=== PATIENT | female | born 2000 | race Hispanic/Latino ===

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

== ENCOUNTER → 2020-02-16 12:58 | Outpatient (CLI) | payer OTHER, MEDICAID, SELFPAY ==
[2020-02-17 09:12] LABS: Strep Grp B PCR NEG for Grp B Strep
== END ==
PROVIDERS: PCP Specialist; Visit Provider Specialist
DX: Z34.03 Encounter for supervision of normal first pregnancy, third trimester (principal); Z3A.37 37 weeks gestation of pregnancy
CPT/HCPCS: 87653

== ENCOUNTER 2020-03-05 11:32 | Observation (INO) | payer OTHER, MEDICAID, SELFPAY ==
--- NOTE | 2020-03-05 12:37 | P.TNLD_ITS ---
Visit Information Visit Information Date of evaluation: 03/05/20 Primary OB Provider: Barbara Phipps On-call OB Provider: Alicia Lerner Reason for Evaluation: Yes rule out labor Comments/Additional reasons for admission: Patient comes in with regular contractions since this morning. No leaking or bleeding. Reports good movement. She was brought over from [place]. Vital Signs Vital Signs: Temperature 36.3? blood pressure 114/72 heart rate 94 PFSH Surgical History Anesthesia (Resolved) [place] teeth extracted (Acute ~2018) Family History Mother No problems noted. Father Depression Grandfather No problems noted. Grandmother No problems noted. Grandfather Stomach cancer Grandmother No problems noted. 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 Cervix was unreachable per RN. NST reactive. Patient was fadia though somewhat irregularly. She walked for an hour and returned to the center. Cervix reportedly unchanged. She was sent home with return precautions. Follow-up in clinic as scheduled. OB Disposition: home
== END 2020-03-05 14:30 | disposition home or self-care (01) ==
PROVIDERS: Admitting Provider Family Medicine; PCP Specialist; Referring Provider Family Medicine; Visit Provider Family Medicine
DX: Z34.03 Encounter for supervision of normal first pregnancy, third trimester (principal); Z3A.39 39 weeks gestation of pregnancy
CPT/HCPCS: 59025; G0378; G0379

== ENCOUNTER 2020-03-06 09:17 | Inpatient (IN) | payer OTHER, MEDICAID, SELFPAY ==
--- NOTE | 2020-03-06 12:56 | PM.OBHP.1 ---
OB HPI Date/Time Date of admission: 03/06/20 Date Patient Seen: 03/06/20 Time Patient Seen: 11:30 History of Present Condition Chief complaint: NST : 1 Para: 0 Estimated Date of Delivery: 03/08/20 Estimated Gestational Age (weeks): 39 Narrative: Lizz Astudillo is a 20 year old female admitted in active labor History of Present care: good care, initiated at week # (8), number of visits (11) and pounds weight gain (36) Dating criteria: LMP confirmed by 1st trimester US Ultrasounds: normal 1st trimester US and normal mid trimester US Obstetrical complications: none Medical complications: none Preadmission Labs Blood type: O (+) positive -: Antibody screen: negative, GBS status: negative, HBsAG: negative, HIV: negative and RPR/VDLR: negative -: Chlamydia screen: not detected and Gonorrhea screen: not detected -: Rubella: not immune and Varicella: immune HCAB: reactive 1 hr GTT: 107 Evaluation Evaluation Baseline heart rate: 130 Variability: Moderate (11-25) monitor accelerations: Present monitor decelerations: Absent Contraction Frequency (minutes): 3 Uterine Contraction Intensity: Mild Category of Tracing: Reactive Cervical dilation (cm): 4 Cervical effacement (%): 80 station: -1 Non-invasive Membranes Rupture Test: negative PFSH Surgical History Anesthesia (Resolved) [place] teeth extracted (Acute ~2018) Family History Mother No problems noted. Father Depression Grandfather No problems noted. Grandmother No problems noted. Grandfather Stomach cancer Grandmother No problems noted. 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 No rupture membranes. Good movement ROS: Yes All systems reviewed with the patient and are negative except as otherwise documented Exam Vital Signs (past 8 hours): Blood pressure 134/75, pulse of 102, temperature 97.1? Narrative Exam Narrative: HEENT exam within normal limits. Lungs are clear to auscultation percussion. Heart is regular rate and rhythm no S3-S4 or murmurs. Abdomen is gravid and nontender. Fetus is vertex. Extremities without edema and nontender. Assessment and Plan Assessment and Plan Assessment and Plan narrative: Term in active labor. Anticipate vaginal delivery.
[2020-03-06 13:31] VITALS: BP 126/85
[2020-03-06 14:08] LABS: Add Manual Diff / Slide Review NO; Basophils Absolute Auto 0 /uL (0-100); Basophils Percent Auto 0.3 % (0-2); Eosinophils Absolute Auto 0 /uL (0-450); Eosinophils Percent Auto 0.1 % (2-4); Hematocrit 38.8 % (36-46); Hemoglobin 12.9 g/dL (12.0-16.0); Lymphocytes Absolute Auto 1600 /uL (1100-4500); Lymphocytes Percent Auto 14.4 % (25-40); Mean Corpuscular HGB Conc 33.2 % (30-36); Mean Corpuscular Hemoglobin 28.2 PG (26-34); Monocytes Absolute Auto 400 /uL (0-900); Monocytes Percent Auto 3.5 % (3-14); Neutrophils Absolute Auto 9300 /uL (1500-7000); Neutrophils Percent Auto 81.7 % (50-75); Platelet Count 287 X10^3/uL (150-400); Red Blood Cell Count 4.57 X10^6/uL (4.0-5.2); Red Cell Distribution Width 14.4 % (11.6-14.8); White Blood Cell Count 11.4 X10^3/uL (4.5-11.0)
[2020-03-06 14:41] LABS: COVID19 -Nasal RAPID Negative (Negative)
[2020-03-06] MEDS: ONDANSETRON 4 MG/2 ML INJ IV (21:02)
[2020-03-06] MEDS: fentaNYL 100 MCG/2 ML INJ IV (22:11)
--- NOTE | 2020-03-07 01:08 | PM.OBPRVD ---
Labor & Delivery Delivery date: 03/07/20 Cervical ripening method: none Induction method: none Delivery augmentation: rupture of membranes Delivery monitor: external FHT and external uterine Route of delivery: L&D Laceration Description: Periurethral - 1st Degree and Vaginal - 1st Degree Delivery repair: chromic ( 3 0 and 4 0 chromic) Estimated blood loss (mL): 200 Anesthesia type: Local ( 10 cc of 1% lidocaine) Narrative: Patient arrived on Labor and delivery in active labor. She initially had slow progress in labor. She was AROMed for clear fluid. Patient progressed to complete dilation. 2Nd stage of labor was 13 minutes. The heart tones category 1 to category 2 throughout labor with decelerations with pushing treated with O2 and IV fluids. the viable male infant was delivered spontaneously over an intact perineum. The infant had a nuchal cord that was released. He was placed on the maternal abdomen. After the cord stopped pulsating the cord was clamped, cut, and cord bloods obtained. The placenta delivered spontaneously, intact, with 3 vessels. Patient had no cervical tears. She had a first-degree vaginal tear that was repaired with 3 0 chromic suture. She had a right labial tear that was repaired with 4 0 chromic suture. Both and mother doing well. Baby 1: gender: Male Presentation: vertex position: Right Occiput Anterior Placenta delivery description: Spontaneous cord vessel description: Nuchal Cord score (1 min): 8 score (5 min): 9 Plan for aftercare: routine post vaginal delivery care
[2020-03-07] MEDS: IBUPROFEN 600 MG TABLET PO ×4 (03:10→22:51)
[2020-03-07] MEDS: ACETAMINOPHEN 325 MG TABLET 650 MG PO (05:36)
--- NOTE | 2020-03-07 15:44 | PM.OBPN.1 ---
Subjective - OB Subjective Patient comments: no complaints [place] baby status: doing well and nursing well [place] feeding status: exclusively breast feeding Date Patient Seen: 03/07/20 Time Patient Seen: 15:46 Interval history: Patient is doing well . She is urinating and ambulating well. She is breast-feeding without difficulty. She has minimal pain. No headaches, scotomata, epigastric pain. Exam Vital Signs (past 8 hours): Blood pressure 105/65, pulse of 96, temperature 98.5? Narrative Exam Narrative: Abdomen is soft, nontender. Uterus is firm, at U, nontender. Mild lochia. Extremities without edema and nontender. Objective Labs Result Diagrams: 03/06/20 12:40 Assessment & Plan Assessment and Plan (1) Vaginal delivery: Status: Acute Plan day: 1 plan OB: routine care Time Spent With Patient Time: Total time spent is greater than 50% in coordination of care (as documented) at patient's floor/unit and/or counseling patient: Time with patient: less than 15 minutes
[2020-03-08 06:43] LABS: Add Manual Diff / Slide Review NO; Basophils Absolute Auto 100 /uL (0-100); Basophils Percent Auto 0.9 % (0-2); Eosinophils Absolute Auto 0 /uL (0-450); Eosinophils Percent Auto 0.4 % (2-4); Hematocrit 30.8 % (36-46); Hemoglobin 10.4 g/dL (12.0-16.0); Lymphocytes Absolute Auto 1800 /uL (1100-4500); Lymphocytes Percent Auto 18.5 % (25-40); Mean Corpuscular HGB Conc 33.8 % (30-36); Mean Corpuscular Hemoglobin 28.8 PG (26-34); Mean Corpuscular Volume 85.1 fL (80-100); Monocytes Absolute Auto 700 /uL (0-900); Monocytes Percent Auto 6.8 % (3-14); Neutrophils Absolute Auto 7200 /uL (1500-7000); Neutrophils Percent Auto 73.4 % (50-75); Platelet Count 235 X10^3/uL (150-400); Red Blood Cell Count 3.62 X10^6/uL (4.0-5.2); Red Cell Distribution Width 14.5 % (11.6-14.8); White Blood Cell Count 9.8 X10^3/uL (4.5-11.0)
[2020-03-08] MEDS: LANOLIN OINT 7 GM 1 APPLIC TOP (07:56)
[2020-03-08] MEDS: IBUPROFEN 600 MG TABLET PO ×2 (07:56→14:33)
--- NOTE | 2020-03-08 08:49 | P.DS_ITS ---
Discharge Providers Provider Date of admission: 03/06/20 09:17 Discharge Date: 03/08/20 Primary care physician: Barbara Phipps MD Consults: 03/08/20 01:06 Consult to Cook Mess Routine Comment: Discharge provider: Barbara Phipps MD Summary Hospital Course Date Patient Seen: 03/08/20 Time Patient Seen: 08:49 Procedures: Spontaneous vaginal delivery repair of first-degree vaginal tear Hospital Course: Patient arrived on Labor and delivery in active labor. She eventually progressed and had a spontaneous vaginal delivery. Peripartum Data Infant Delivery Method: Natural Vaginal Laceration Description: Vaginal - 1st Degree and Labial (Small right labia minora tear) Procedures: Spontaneous vaginal delivery repair of first-degree tear. Patient is urinating and ambulating well. No headaches, scotomata, epigastric pain. Pain is mild. Breast-feeding is going well. complications: none [place] 1: Gender: Male Disposition of : home Discharge Diagnosis (1) Vaginal delivery: Status: Acute Status at Discharge Cognitive/behavioral status at discharge: oriented Functional status at discharge: independent ambulation Overall status at discharge: patient is progressing back to baseline Time Spent with Patient Time attestation: Total time spent providing and/or coordinating discharge services: Time spent: Less than 30 minutes Objective Labs Result Diagrams: 03/08/20 06:27 Labs: Laboratory Results - last 24 hr 03/08/20 06:27 WBC 9.8 RBC 3.62 L Hgb 10.4 L Hct 30.8 L MCV 85.1 MCH 28.8 MCHC 33.8 RDW 14.5 Plt Count 235 Neut % (Auto) 73.4 Lymph % (Auto) 18.5 L [place] % (Auto) 6.8 Eos % (Auto) 0.4 L Baso % (Auto) 0.9 Neut # (Auto) 7200 H Lymph # (Auto) 1800 [place] # (Auto) 700 Eos # (Auto) 0 Baso # (Auto) 100 Exam Vital Signs (past 8 hours): Blood pressure 113/75, pulse of 87, temperature 97.1? Narrative Exam Narrative: Abdomen is soft, nontender. Uterus is firm, at U, nontender. Mild lochia. Extremities without edema and nontender. Patient is blood type is O positive, she is rubella nonimmune so will receive the rubella vaccine prior to discharge, she received Tdap in the 3rd trimester. Discharge Plan Discharge Plan Patient Disposition: Home Discharge orders & Medications Prescriptions: Continued (DME) Double Electric breast Pump and Supplies See Rx Instructions .ROUTE .MEDSUPPLY Qty: 1 RF: 0 KPN Tablet 1 tab PO DAILY RF: 0 Follow up/Referrals: Barbara Phipps MD [Primary Care Provider] - 03/27/20 (in [place]) Diet/Activity/Treatments Diet: Regular Activity: Nothing in vagina for 6 weeks Skin/Wound/Dressing Care Report to your healthcare provider any signs of infection, such as:: chills, fever and increased pain Discharge Data Primary Care Provider: Barbara Phipps
[2020-03-08] MEDS: MEASLES,MUMPS,RUBELLA VACC/PF 0.5 ML VIAL SUBCUT (16:00)
[2020-03-08 17:17] VITALS: BP 126/85; PULSE 89; RESP 16; TEMP 36.6
== END 2020-03-08 16:05 | disposition home or self-care (01) | DRG 560 ==
PROVIDERS: Admitting Provider Specialist; PCP Specialist; Referring Provider Specialist; Visit Provider Specialist
DX: O70.0 First degree perineal laceration during delivery (principal); Z3A.39 39 weeks gestation of pregnancy; Z37.0 Single live birth; O69.81X0 Labor and delivery complicated by cord around neck, without compression, not applicable or unspecified; Z11.59 Encounter for screening for other viral diseases
CPT/HCPCS: 36415; 59025; 59050; 59409; 85025; 86850; 86900; 86901; 87635; G0378; G0379; J2405; J3010